=== PATIENT | male | born 1970 | race Caucasian/White ===

== ENCOUNTER 2024-04-10 04:32 | Emergency (ER) | payer BC, OTHER ==
[2024-04-10] MEDS ORDERED: ALBUTEROL 2.5 MG/3 ML NEB SOL ONE (05:18)
[2024-04-10] MEDS ORDERED: METHYLPREDNISOLONE 125 MG INJ ONE (05:18)
[2024-04-10 05:52] LABS: Absolute Basophils 0.1 K/uL (0-0.5); Absolute Eosinophils 0.4 K/uL (0-0.5); Absolute Lymphocytes (CBC) 1.7 K/uL (0.7-4.9); Absolute Monocytes 0.6 K/uL (0.1-1.3); Absolute Neutrophil 3.1 K/uL (1.8-8.0); Eosinophils % 7.1 % (0-4.4); Hematocrit 40.3 % (39.6-49.0); Lymphocytes % 28.6 % (15.3-44.8); MCH 25.6 pg (27.0-35.0); MCHC 32.3 g/dL (32.0-36.0); MCV 79.3 fL (80-100); MPV 7.1 fL (7.6-11.3); Monocytes % 10.5 % (3.3-12.3); Neutrophils % 52.8 % (41.7-73.7); Nucleated Red Blood Cells % 0.1 % (0-0); Platelets 205 thou/uL (152-406); RBC Red Blood Cell Count 5.08 M/uL (4.33-5.43); Red Cell Distribution Width 19.9 % (12.1-15.2)
[2024-04-10 05:56] LABS: PT Prothrombin Time 11.9 SECONDS (9.4-12.5); Protime INR 1.06
[2024-04-10 06:10] LABS: ALT/SGPT 48 U/L (16-61); AST/SGOT 29 U/L (15-37); Albumin 3.4 g/dL (3.4-5.0); Albumin/Globulin Ratio 0.9 (1.1-1.8); Alkaline Phosphatase 83 U/L (45-117); Anion Gap 10.7 mEq/L (5.0-15.0); BUN Blood Urea Nitrogen 13 mg/dL (7-18); Bicarbonate 23 mEq/L (21-32); Bilirubin Total 0.3 mg/dL (0.2-1.0); Globulin 3.8 g/dL (2.3-3.5); Glomerular Filtration Rate 88 ml/min (=/>90); Glucose Level 185 mg/dL (74-106); Magnesium 2.3 mg/dL (1.6-2.4); NT PRO-BNP 18 pg/mL (<125); Potassium 3.7 mEq/L (3.5-5.1); Protein, Total 7.2 g/dL (6.4-8.2); Sodium Level 138 mEq/L (136-145); Troponin High Sensitivity 6.4 pg/mL (<58.9)
[2024-04-10 06:13] LABS: Bilirubin Direct < 0.2 mg/dL (0-0.2); Bilirubin Indirect, Calculated 0.1 mg/dL (0.2-0.8)
[2024-04-10 06:18] LABS: Thyroid Stimulating Hormone 1.85 uIU/mL (0.358-3.740)
--- NOTE | 2024-04-10 06:28 | RAD REPORT ---
CLINICAL HISTORY: Chest pain. COMPARISON: None. TECHNIQUE: XR CHEST 1 VIEW 04/10/2024 4:45 AM RIG OPERATOR FINDINGS: The heart is enlarged. Sternotomy was performed. Lungs are clear without consolidation, atelectasis, mass or edema. There is no pleural effusion. There is no pneumothorax. There are no acute osseous findings. IMPRESSION: Clear lungs. Electronically signed by: Kevin Johnson MD 04/10/2024 06:20 AM RIG OPERATOR RP Due to temporary technical issues with the PACS/[employer] reporting system, reports are being anny d by the in-house radiologist without review as a courtesy to ensure prompt reporting the interpreting radiologist is fully responsible for the content of the report. Transcribed Date/Time: 04/10/2024 6:27 AM
--- NOTE | 2024-04-10 08:18 | RAD REPORT ---
EXAM: CT Chest For Pe Angio TECHNIQUE: CT angiogram of the chest was performed following intravenous contrast administration, inc luding sagittal and coronal as well as maximum intensity projection reformats. One or more of the following dose reduction techniques were used: Automated exposure control, adjustment of the mA and k V according to patient size, and iterative reconstruction. Unless otherwise specified, incidental findings do not require dedicated imaging follow-up. INDICATION: [facility] MAIN CHEST PAIN Bed Name: 20 N COMPARISON: Chest radiograph of the same day. FINDINGS: LINES/TUBES: None. PULMONARY ARTERIES: Main pulmonary arteries are normal in caliber. No filling defects within the pul monary arteries to suggest pulmonary embolus, within limits of slightly suboptimal contrast timing. LUNGS AND AIRWAYS: The lungs and central airways are normal without focal abnormality. PLEURA: Trace layering bilateral pleural effusions. No pneumothorax. HEART AND MEDIASTINUM: The visualized thyroid gland is normal. No mediastinal, hilar, or axillary lym phadenopathy. Heart is unremarkable. No pericardial effusion. SOFT TISSUES AND BONES: No acute osseous abnormality. No significant soft tissue finding. UPPER ABDOMEN: Unremarkable. IMPRESSION: No evidence of acute central pulmonary emboli. No suspicious intrathoracic findings..
--- NOTE | 2024-04-10 08:27 | EDPHYS ---
Physician Documentation [facility] Name: Jorge Luis Valdez Age: 53 yrs Sex: Male : 1970 Arrival Date: 04/10/2024 Time: 04:32 Bed 20 Private MD: ED Physician Ramiro Rodriguez HPI: 04/10 04:43 This 53 yrs old Other Race Male presents to ER via Unassigned with complaints of sp4 Breathing Difficulty. 06:41 53-year-old male with history of hypercholesterolemia hypertension and sleep apnea sp4 nightly use of CPAP machine, history of CABG at [facility] on 12/04/2023, presents with chest pain and shortness of breath starting this morning. Pain described as burning diffuse chest pain. Patient takes aspirin 81 mg daily Plavix 75 mg daily.. . Historical: - Allergies: 05:54 Trelegy Ellipta; ay - PMHx: 05:54 Hypercholesterolemia; Hypertensive disorder; ay - PSHx: 05:54 Coronary artery bypass graft; Back surgery; Left Knee Surgery; Left shoulder surgery; ay - Immunization history:: none. - Infectious Disease History:: Denies. - Social history:: Smoking status: Patient/guardian denies using tobacco, the patient reports quitting approximately 2 years ago. - Family history:: not pertinent. ROS: 06:41 Constitutional: Negative for fever, chills, and weight loss, sp4 06:41 All other systems are negative, Exam: 06:40 Constitutional: This is a well developed, well nourished patient who is awake, alert, sp4 and in no acute distress. Head/Face: Normocephalic, atraumatic. Eyes: Pupils equal round and reactive to light, extra-ocular motions intact. Lids and lashes normal. Conjunctiva and sclera are not injected. Cornea within normal limits. Periorbital areas with no swelling, redness, or edema. ENT: Nares patent. No nasal discharge, no septal abnormalities noted. Tympanic membranes are normal and external auditory canals are clear. Oropharynx with no redness, swelling, or masses, exudates, or evidence of obstruction, uvula midline. Mucous membranes moist. Neck: Trachea midline, no thyromegaly or masses palpated, and no cervical lymphadenopathy. Supple, full range of motion without nuchal rigidity, or vertebral point tenderness. Chest/axilla: Normal chest wall appearance and motion. Nontender with no deformity. No lesions are appreciated. Cardiovascular: Regular rate and rhythm with a normal S1 and S2. No gallops, murmurs, or rubs. Normal PMI, no JVD. No pulse deficits. Respiratory: Lungs have equal breath sounds bilaterally, clear to auscultation and percussion. No rales, rhonchi or wheezes noted. No increased work of breathing, no retractions or nasal flaring. Abdomen/GI: Soft, with normal bowel sounds. No distension or tympany. No guarding or rebound. No evidence of tenderness throughout. Back: No spinal tenderness. No costovertebral tenderness. Skin: Warm, dry with normal turgor. Normal color with no rashes, no lesions, and no evidence of cellulitis. MS/ Extremity: Pulses equal, no cyanosis. Neurovascular intact. Full, normal range of motion. Neuro: Awake and alert, GCS 15, oriented to person, place, time, and situation. Cranial nerves II-XII grossly intact. Motor strength 5/5 in all extremities. Sensory grossly intact. Psych: Awake, alert, with orientation to person, place and time. Behavior, mood, and affect are within normal limits 06:40 ECG was reviewed by the Attending Physician. EKG at 0509 Vital Signs: 04:48 Resp 14; Pulse Ox 96% ; ty 05:15 BP 145 / 88; Pulse 83; Resp 12; Temp 99; Pulse Ox 100% on 2 lpm NC; ay 05:15 BP 145 / 88; Pulse 83; Resp 12; Temp 99.2; Pulse Ox 100% on 2 lpm NC; ay 06:21 BP 147 / 72; Pulse 80; Resp 100; Pulse Ox 100% on 2 lpm NC; ay 07:00 BP 132 / 68; Pulse 82; Resp 16; Pulse Ox 96% on R/A; db 08:00 BP 122 / 61; Pulse 82; Resp 14; Pulse Ox 97% on R/A; db 08:45 BP 114 / 69; Pulse 78; Resp 16; Pulse Ox 96% on R/A; db [place] Coma Score: 06:15 Eye Response: spontaneous(4). Motor Response: obeys commands(6). Verbal Response: ay oriented(5). Total: 15. 06:40 Eye Response: spontaneous(4). Motor Response: obeys commands(6). Verbal Response: sp4 oriented(5). Total: 15. MDM: 04:54 Medical Screening Exam initiated sp4 07:17 ED course: CLINICAL HISTORY: Chest pain. COMPARISON: None. TECHNIQUE: XR CHEST 1 VIEW sp4 04/10/2024 4:45 AM FIELD AGRONOMIST FINDINGS: The heart is enlarged. Sternotomy was performed. Lungs are clear without consolidation, atelectasis, mass or edema. There is no pleural effusion. There is no pneumothorax. There are no acute osseous findings. IMPRESSION: Clear lungs. Electronically signed by: . 08:11 Transition of care: After a detail discussion of the patient's case, care is sp4 transferred to Ramiro Rodriguez MD. ED course: Patient is awaiting for CT report . 08:26 Differential diagnosis: Anemia Anxiety Reaction Chronic Obstructive Pulmonary Disease rn pneumonia, Pneumothorax pulmonary edema, Pulmonary Embolism. Data reviewed: vital signs, nurses notes, lab test result(s), EKG, radiologic studies, CT scan, plain films, and as a result, I will discharge patient. Counseling: I had a detailed discussion with the patient and/or guardian regarding the historical points, exam findings, and any diagnostic results supporting the discharge/admit diagnosis, lab results, radiology results, the need for outpatient follow up, to return to the emergency department if symptoms worsen or persist or if there are any questions or concerns that arise at home. ED course: Patient signed out to me by Dr. Robles, plan was to discharge home if CT chest negative for acute findings, which it is, will discharge home per plan. Recommend pulmonary follow-up.. 21:13 ED course: EXAM: CT Chest For Pe Angio TECHNIQUE: CT angiogram of the chest was sp4 performed following intravenous contrast administration, including sagittal and coronal as well as maximum intensity projection reformats. One or more of the following dose reduction techniques were used: Automated exposure control, adjustment of the mA and kV according to patient size, and iterative reconstruction. Unless otherwise specified, incidental findings do not require dedicated imaging follow-up. INDICATION: [facility] MAIN CHEST PAIN Bed Name: 20 N COMPARISON: Chest radiograph of the same day. FINDINGS: LINES/TUBES: None. PULMONARYARTERIES: Main pulmonary arteries are normal in caliber. No filling defects within the pulmonary arteries to suggest pulmonary embolus, within limits of slightly suboptimal contrast timing. LUNGS AND AIRWAYS: The lungs and central airways are normal without focal abnormality. PLEURA: Trace layering bilateral pleural effusions. No pneumothorax. HEARTAND MEDIASTINUM: The visualized thyroid gland is normal. No mediastinal, hilar, or axillary lymphadenopathy. Heart is unremarkable. No pericardial effusion. SOFT TISSUES AND BONES: No acute osseous abnormality. No significant soft tissue finding. UPPER ABDOMEN: Unremarkable. IMPRESSION: No evidence of acute central pulmonary emboli. No suspicious intrathoracic findings.. . 21:13 ED course: We suspect COPD with exacerbation secondary to long history of smoking sp4 tobacco. At this time we will diagnose patient with emphysema and COPD with acute exacerbation. Patient was prescribed fluticasone and prednisone.. 04/10 04:45 Order name: Basic Metabolic Panel; Complete Time: 06:14 sp4 04/10 04:45 Order name: CBC with Diff; Complete Time: 06:14 sp4 04/10 04:45 Order name: LFT's; Complete Time: 06:14 sp4 04/10 04:45 Order name: Magnesium; Complete Time: 06:14 sp4 04/10 04:45 Order name: NT PRO-BNP; Complete Time: 06:14 sp4 04/10 04:45 Order name: PT-INR; Complete Time: 06:14 sp4 04/10 04:45 Order name: Troponin HS; Complete Time: 06:14 sp4 04/10 05:06 Order name: TSH; Complete Time: 06:28 sp4 04/10 05:06 Order name: T4 Free; Complete Time: 06:28 sp4 04/10 05:08 Order name: CRP; Complete Time: 06:14 sp4 04/10 05:08 Order name: Blood Culture Adult (2) sp4 04/10 04:45 Order name: XRAY Chest (1 view); Complete Time: 07:15 sp4 04/10 05:06 Order name: CT Chest For PE Angio; Complete Time: 08:25 sp4 04/10 04:45 Order name: Cardiac monitoring; Complete Time: 05:21 sp4 04/10 04:45 Order name: EKG - Nurse/Tech; Complete Time: 05:21 sp4 04/10 04:45 Order name: IV Saline Lock; Complete Time: 05:21 sp4 04/10 04:45 Order name: Labs collected and sent; Complete Time: 05:21 sp4 04/10 04:45 Order name: O2 Per Protocol; Complete Time: sp4 04/10 04:45 Order name: O2 Sat Monitoring; Complete Time: sp4 EC:40 Rate is 73 beats/min. Rhythm is regular, Normal Sinus Rhythm. QRS Shorter is Normal. IA sp4 interval is normal. QRS interval is normal. QT interval is normal. No Q waves. T waves are Normal. No ST changes noted. Clinical impression: No evidence of ischemia. Interpreted by me. Reviewed by me. Administered Medications: 05:21 Drug: Albuterol Inhalation 2.5 mg Inhalation every 20 minutes x3 Route: Inhalation; bm8 05:43 Drug: MethylPrednisoLONE IVP 125 mg IVP once Route: IVP; Site: right antecubital; ay 09:17 Follow up: Response: No adverse reaction db 05:43 Drug: Albuterol Inhalation 2.5 mg Inhalation every 20 minutes x3 Route: Inhalation; ay 09:17 Follow up: Response: No adverse reaction db Disposition Summary: 04/10/24 08:27 Discharge Ordered Notes: Consider follow up with Pulmonology Location: Home rn Problem: new rn Symptoms: have improved rn Condition: Stable rn Diagnosis - Dyspnea, unspecified rn Followup: rn - With: Private Physician - When: As needed - Reason: Recheck today's complaints, Re-evaluation by your physician Discharge Instructions: - Discharge Summary Sheet sp4 - Shortness of Breath, Adult, Hpzm-to-Cfna sp4 Forms: - Medication Reconciliation Form rn - Antibiotic overnight associate - Prescription Opioid Use rn - Patient Portal Instructions rn - Leadership Thank You Letter rn Prescriptions: - fluticasone propionate 110 mcg/actuation Inhalation HFA Aerosol Inhaler - inhale 110 microgram INHALATION route every 12 hours Dispense 1 Inhaler ( 120 sp4 Metered Actuations ) With Spacer; 1 unit; Refills: 0, Product Selection Permitted - Prednisone 20 mg Oral Tablet - take 2 tablets ORAL route once daily for 5 days; 10 tablet; Refills: 0, Product sp4 Selection Permitted Signatures: Dispatcher [employer] EDRamiro Lara MD MD rn Potepalov, Sergey, MD MD sp4 Kody Banuelos RN LEROY bmAncelmo Antoine RN RN ay Benton, Danielle RN db Corrections: (The following items were deleted from the chart) 04:46 04:46 Chest Single View+RAD.RAD.BRZ ordered. EDMS EDMS 05:07 05:07 THYROID STIMULAT HORMONE+C.LAB.BRZ ordered. EDMS EDMS 05:07 05:07 T4 FREE+C.LAB.BRZ ordered. EDMS EDMS 05:07 05:07 Chest For PE Angio+CT.RAD.BRZ ordered. EDMS EDMS
--- NOTE | 2024-04-10 08:27 | ER ---
Nurse's Notes [facility] Name: Jorge Luis Valdez Age: 53 yrs Sex: Male : 1970 Arrival Date: 04/10/2024 Time: 04:32 Bed 20 Private MD: Diagnosis: Dyspnea, unspecified Presentation: 04/10 05:15 Chief complaint: Patient states: pt c/o SOB and chest pain. Denies N/V. ay 05:15 Coronavirus screen: Client denies travel out of the [place] in the last 14 days. Ebola ay Screen: No symptoms or risks identified at this time. Initial Sepsis Screen: Does the patient meet any 2 criteria? No. Patient's initial sepsis screen is negative. Does the patient have a suspected source of infection? No. Patient's initial sepsis screen is negative. Risk Assessment: Do you want to hurt yourself or someone else? Patient reports no desire to harm self or others. Note Pt WI with a c/o SOB and Chest pain. Denies N/V. Pt alert and oriented x4 , no distress noted. Placed on cardiac technician and 2L NC. Onset of symptoms was April 10, 2024. 05:15 Method Of Arrival: Ambulatory ay 05:15 Acuity: DEEJAY 2 ay Triage Assessment: 05:54 General: Appears in no apparent distress. uncomfortable, Behavior is calm, cooperative. ay Pain: Complains of pain in chest. EENT: No signs and/or symptoms were reported regarding the EENT system. Neuro: Level of Consciousness is awake, alert, obeys commands, Oriented to person, place, time, situation, Lbd Teacher are equal bilaterally Speech is normal. Cardiovascular: Heart tones Capillary refill < 3 seconds. Respiratory: Reports shortness of breath at rest Airway is patent Respiratory effort is even, labored, Onset: The symptoms/episode began/occurred this morning, the patient has moderate shortness of breath. GI: Abd is soft and non tender X 4 quads. : No signs and/or symptoms were reported regarding the genitourinary system. Derm: No signs and/or symptoms reported regarding the dermatologic system. Musculoskeletal: No signs and/or symptoms reported regarding the musculoskeletal system. Historical: - Allergies: 05:54 Trelegy Ellipta; ay - PMHx: 05:54 Hypercholesterolemia; Hypertensive disorder; ay - PSHx: 05:54 Coronary artery bypass graft; Back surgery; Left Knee Surgery; Left shoulder surgery; ay - Immunization history:: none. - Infectious Disease History:: Denies. - Social history:: Smoking status: Patient/guardian denies using tobacco, the patient reports quitting approximately 2 years ago. - Family history:: not pertinent. Screenin:15 [facility] ED Fall Risk Assessment (Adult) History of falling in the last 3 months, ay including since admission Yes- single mechanical fall (1 pt) Confusion or Disorientation No (0 pts) Intoxicated or Sedated No (0 pts) Impaired Gait No (0 pts) Mobility Assist Device Used No (0 pt) Altered Elimination No (0 pt) Score/Fall Risk Level 0 - 2 = Low Risk Oriented to surroundings, Maintained a safe environment, Educated pt \T\ family on fall prevention, incl call for assistance when getting out of bed, Assessed \T\ reinforced patient's understanding of fall precautions. Abuse screen: Denies threats or abuse. Nutritional screening: No deficits noted. Tuberculosis screening: No symptoms or risk factors identified. Assessment: 06:15 General: See Triage Assessment. Cardiovascular: Capillary refill < 3 seconds Rhythm is ay sinus rhythm. Respiratory: Airway is patent Respiratory effort is even, labored, Breath sounds with crackles bilaterally. Breath sounds are diminished bilaterally. 07:16 Reassessment: Patient appears in no apparent distress at this time. Patient and/or db family updated on plan of care and expected duration. Pain level reassessed. Patient is alert, oriented x 3, equal unlabored respirations, skin warm/dry/pink. FAMILY IS AT BEDSIDE. 09:00 Reassessment: Patient appears in no apparent distress at this time. Patient and/or db family updated on plan of care and expected duration. Pain level reassessed. Patient is alert, oriented x 3, equal unlabored respirations, skin warm/dry/pink. Patient states feeling better. Patient states symptoms have improved. Vital Signs: 04:48 Resp 14; Pulse Ox 96% ; ty 05:15 BP 145 / 88; Pulse 83; Resp 12; Temp 99; Pulse Ox 100% on 2 lpm NC; ay 05:15 BP 145 / 88; Pulse 83; Resp 12; Temp 99.2; Pulse Ox 100% on 2 lpm NC; ay 06:21 BP 147 / 72; Pulse 80; Resp 100; Pulse Ox 100% on 2 lpm NC; ay 07:00 BP 132 / 68; Pulse 82; Resp 16; Pulse Ox 96% on R/A; db 08:00 BP 122 / 61; Pulse 82; Resp 14; Pulse Ox 97% on R/A; db 08:45 BP 114 / 69; Pulse 78; Resp 16; Pulse Ox 96% on R/A; db [place] Coma Score: 06:15 Eye Response: spontaneous(4). Motor Response: obeys commands(6). Verbal Response: ay oriented(5). Total: 15. 06:40 Eye Response: spontaneous(4). Motor Response: obeys commands(6). Verbal Response: sp4 oriented(5). Total: 15. ED Course: 04:42 Patient arrived in ED. gm2 04:43 Ramirez Robles MD is Attending Physician. sp4 05:15 Arm band placed on right wrist. Patient placed on oxygen, on cardiac technician, on pulse ay oximetry. EKG completed in triage. Results shown to MD. 05:19 XRAY Chest (1 view) In Process Unspecified. EDMS 05:42 Ancelmo Huang, RN is Primary Nurse. ay 05:54 Triage completed. ay 06:15 Patient has correct armband on for positive identification. Placed in gown. Bed in low ay position. Call light in reach. Side rails up X2. Adult w/ patient. Provided Education on: Procedure Consent. 06:15 No provider procedures requiring assistance completed. Inserted saline lock: 20 gauge ay in right antecubital area, using aseptic technique. Oxygen administration via nasal cannula \T\ 2L/min. 06:57 CT Chest For PE Angio In Process Unspecified. EDMS 07:00 Client placed on continuous cardiac and pulse oximetry monitoring. NIBP monitoring db applied. patient monitor on. Pulse ox on. NIBP on. Pillow given. 08:26 Attending Physician role handed off by Ramirez Robles MD rn 08:26 Ramiro Rodriguez MD is Attending Physician. rn 09:16 IV discontinued, intact, bleeding controlled, No redness/swelling at site. db Administered Medications: 05:21 Drug: Albuterol Inhalation 2.5 mg Inhalation every 20 minutes x3 Route: Inhalation; bm8 05:43 Drug: MethylPrednisoLONE IVP 125 mg IVP once Route: IVP; Site: right antecubital; ay 09:17 Follow up: Response: No adverse reaction db 05:43 Drug: Albuterol Inhalation 2.5 mg Inhalation every 20 minutes x3 Route: Inhalation; ay 09:17 Follow up: Response: No adverse reaction db Medication: 06:15 VIS not applicable for this client. ay Outcome: 08:27 Discharge ordered by . rn 09:16 Discharged to home ambulatory, with family, db 09:16 Condition: stable 09:16 Discharge instructions given to patient, family, Instructed on discharge instructions, follow up and referral plans. Prescriptions given X 2, 09:18 Patient left the ED. db Signatures: Dispatcher [employer] EDMS Ramiro Rodriguez MD MD rn Benton, Danielle RN RN Ramirez Patel MD MD sp4 Lolis Emmanuel 2 Pawan Cohen Brad RN RN bm8 Ancelmo Huang RN LEROY ay
[2024-04-10 13:46] VITALS: TEMP 99
[2024-04-10 13:50] VITALS: BP 114/69; O2SAT 96
== END 2024-04-10 09:18 | disposition home or self-care (01) ==
LOC: ER 04:32
DX: R06.00 Dyspnea, unspecified (principal); R07.9 Chest pain, unspecified; I10 Essential (primary) hypertension; Z95.1 Presence of aortocoronary bypass graft
CPT/HCPCS: 87040 ×2; 85025; 80048; 36415; 83735; 85610; 80076; 84443; 84484; 84439; 83880; 86140; 71275; 71045; 96374; 99285; Q9967; J7613; J2919